=== PATIENT | female | born 1990 | race Caucasian/White ===

== ENCOUNTER 2020-06-03 10:30 | Outpatient (RCR) | payer MEDICAID ==
[~2020-06-03 10:30] MED LIST: BACTRIM DS 8001 TAB PO; CEFTIN500 MG PO; CLONAZEPAM PO; NO HOME MEDICATIONS; VICODIN 5/5001 UDTAB PO; ZOLOFT50 MG PO
== END 2020-08-01 09:19 | disposition home or self-care (01) ==
LOC: WSC 10:30
DX: M48.061 Spinal stenosis, lumbar region without neurogenic claudication (principal); M43.10 Spondylolisthesis, site unspecified; M51.16 Intervertebral disc disorders with radiculopathy, lumbar region; E66.3 Overweight

== ENCOUNTER 2021-04-20 16:35 | Emergency (ER) | payer OTHER, MEDICAID ==
[~2021-04-20] VITALS: Ht 175.3 cm; Wt 104.5 kg
[2021-04-20 17:44] VITALS: TEMP 98.3
[2021-04-20] MEDS ORDERED: FLEXERIL 1010 MG/TAB PO (19:19)
[2021-04-20 19:30] VITALS: BP 114/52; PULSE 68
== END 2021-04-20 19:30 | disposition home or self-care (01) ==
LOC: COL.ER 16:35
DX: S39.012A Strain of muscle, fascia and tendon of lower back, initial encounter (principal); N12 Tubulo-interstitial nephritis, not specified as acute or chronic; Z87.39 Personal history of other diseases of the musculoskeletal system and connective tissue; X50.1XXA Overexertion from prolonged static or awkward postures, initial encounter; Y93.K1 Activity, walking an animal
CPT/HCPCS: J1885

== ENCOUNTER 2021-05-26 11:44 | Emergency (ER) | payer OTHER, MEDICAID ==
[~2021-05-26] VITALS: Ht 175.3 cm; Wt 90.9 kg
[~2021-05-26 11:44] MED LIST changes: +FLEXERIL 1010 MG/TAB PO
[2021-05-26 12:17] VITALS: BP 144/79; TEMP 98.3
[2021-05-26 16:03] VITALS: PULSE 85
== END 2021-05-26 16:03 | disposition home or self-care (01) ==
LOC: COL.ER 11:44
DX: S06.0X9A Concussion with loss of consciousness of unspecified duration, initial encounter (principal); S39.012A Strain of muscle, fascia and tendon of lower back, initial encounter; F17.210 Nicotine dependence, cigarettes, uncomplicated; V43.52XA Car driver injured in collision with other type car in traffic accident, initial encounter
CPT/HCPCS: J1885

== ENCOUNTER 2022-01-16 17:57 | Emergency (ER) | payer OTHER, MEDICAID ==
[~2022-01-16] VITALS: Ht 175.3 cm; Wt 90.9 kg
[2022-01-16 18:38] VITALS: BP 139/84; PULSE 108; TEMP 98.3
== END 2022-01-16 19:00 | disposition left against medical advice (07) ==
LOC: COL.ER 17:57
DX: F11.23 Opioid dependence with withdrawal (principal); Z28.310 Unvaccinated for COVID-19